=== PATIENT | female | born 1990 ===

== ENCOUNTER 2017-03-11 09:03 | Emergency (ER) | payer BC ==
[2017-03-11 09:17] VITALS: BP 124/74; PULSE 99; RESP 16; TEMP 99.2; O2SAT 99
[2017-03-11] MEDS ORDERED: Alum-Mag Hydrox-Simethicone Susp (30 mL) PO STA (09:33)
[2017-03-11] MEDS ORDERED: Sodium Chloride 0.9% 1,000 ML IV STA (09:33)
--- NOTE | 2017-03-11 09:37 | ED PDOC ---
Arrival/HPI - General Chief Complaint: Abdominal Pain Time Seen by Provider: 03/11/17 09:19 Historian: Patient - History of Present Illness Narrative History of Present Illness (Text): 03/11/17 09:34 26 y/o female, pmh including appendicitis, nkda, c/o abdominal pain x 1 week. Aching and cramping pain, on and off, admits poor eating habits and doesn't eat on time, occasional feels nausea with no vomiting, she has no diarrhea ( disagreed with the triage) which she usually has bowel movement 2-3 episodes per day, last bowel movement was this morning. Pt. has no weight loss, no night sweat, no dizziness, no chest pain or shortness of breath, no palpitation , no rash, no other medical or psychological complaints. Past Medical History - Provider Review Nursing Documentation Reviewed: Yes - Psychiatric Hx Psychophysiologic Disorder: No Hx Substance Use: No - Surgical History Hx Appendectomy: Yes Family/Social History - Physician Review Nursing Documentation Reviewed: Yes Family/Social History: Unknown Family HX Smoking Status: Never Smoked Hx Alcohol Use: No Hx Substance Use: No Allergies/Home Meds Allergies/Adverse Reactions: Allergies No Known Allergies Allergy (Verified 03/11/17 09:50) Review of Systems - Review of Systems Constitutional: absent: Fatigue, Fevers Eyes: absent: Vision Changes ENT: absent: Hearing Changes Respiratory: absent: SOB, Cough, Sputum Cardiovascular: absent: Chest Pain Gastrointestinal: Abdominal Pain, Nausea. absent: Diarrhea, Vomiting Neurological: absent: Headache, Dizziness, Focal Weakness, Gait Changes, Speech Changes, Facial Droop, Disequilibrium, Seizure Psychiatric: absent: Anxiety, Depression, Suicidal Ideation Physical Exam Vital Signs Reviewed: Yes Vital Signs Temp Pulse Resp BP Pulse Ox 03/11/17 09:12 99.2 F 99 H 16 124/74 99 Temperature: Afebrile Blood Pressure: Normal Pulse: Regular Respiratory Rate: Normal Appearance: Positive for: Well-Appearing, Non-Toxic, Comfortable Pain Distress: Moderate Mental Status: Positive for: Alert and Oriented X 3 - Systems Exam Head: Present: Atraumatic, Normocephalic Pupils: Present: PERRL Extroacular Muscles: Present: EOMI Conjunctiva: Present: Normal Mouth: Present: Moist Mucous Membranes, Normal Lips, Normal Tounge, Other (no dental erosion). No: Drooling, Trismus Neck: Present: Normal Range of Motion Respiratory/Chest: Present: Clear to Auscultation, Good Air Exchange. No: Respiratory Distress, Accessory Muscle Use Cardiovascular: Present: Regular Rate and Rhythm, Normal S1, S2. No: Murmurs Abdomen: Present: Tenderness (+epigastric tenderness), Normal Bowel Sounds. No : Distention, Peritoneal Signs, Rebound, Guarding Back: Present: Normal Inspection. No: CVA Tenderness Upper Extremity: Present: Normal Inspection. No: Cyanosis, Edema Lower Extremity: Present: Normal Inspection. No: Edema Neurological: Present: GCS=15, Speech Normal, Motor Func Grossly Intact, Gait Normal, Memory Normal Skin: Present: Warm, Dry, Normal Color. No: Rashes Psychiatric: Present: Alert, Oriented x 3, Normal Insight, Normal Concentration Medical Decision Making ED Course and Treatment: 03/11/17 09:38 Differential: pancreatitis vs. gastritis vs. cholecystitis vs. UTI -labs/ua -gallbladder sonogram -GI cocktail -IVF -Observe and reassess 03/11/17 10:41 -Labs are non-significant -UA show +UTI -Sonogram show no acute cholecystitis -Pt. fees better. -Discharge home with pepcid, zofran, avoid acidic/sour/spicy/fried/grilled food , avoid carbonated drinks, eat small and frequent meals, follow up with your own pmd and GI for outpatient follow up including endoscopy for further evaluation, return to the ER for any new or worsening signs or symptoms. - Lab Interpretations Lab Results: 03/11/17 09:40 03/11/17 09:40 Lab Results 03/11/17 09:40: Urine Color Yellow, Urine Appearance Sl cloudy, Urine pH 6.0, Ur Specific [place] 1.025, Urine Protein Trace H, Urine Glucose (UA) Negative, Urine Ketones Negative, Urine Blood Negative, Urine Nitrate Negative, Urine Bilirubin Negative, Urine Urobilinogen 0.2, Ur Leukocyte Esterase Small H, Urine RBC Negative, Urine WBC 2 - 5, Ur Epithelial Cells Many, Urine Bacteria Mod, Hyaline Casts 0 - 2 03/11/17 09:40: Sodium 137, Potassium 4.2, Chloride 103, Carbon Dioxide 27, Anion Gap 11, BUN 15, Creatinine 0.7, Est GFR ( Amer) > 60, Est GFR (Non- Af Amer) > 60, Random Glucose 90, Calcium 9.1, Total Bilirubin 0.3, AST 30, ALT 28, Alkaline Phosphatase 52, Total Protein 7.8, Albumin 4.0, Globulin 3.7, Albumin/Globulin Ratio 1.1, Lipase 57 03/11/17 09:40: WBC 6.8, RBC 4.21, Hgb 12.1, Hct 34.5 L, MCV 81.9, MCH 28.7, MCHC 35.1, RDW 12.5, Plt Count 269, MPV 9.3, Gran % 63.2, Lymph % (Auto) 29.3, [place] % (Auto) 6.0, Eos % (Auto) 1.2 L, Baso % (Auto) 0.3, Gran # 4.32, Lymph # 2.0, [place] # 0.4, Eos # 0.1, Baso # 0.02 I have reviewed the lab results: Yes Interpretation: Abnormal lab values (+UTI) - RAD Interpretation Radiology Orders: 03/11/17 09:33 GALL BLADDER [US] Stat - Medication Orders Current Medication Orders: Dicyclomine HCl (Bentyl) 20 mg PO QID CLAUDE Last Admin: 03/11/17 10:01 Dose: 20 mg Discontinued Medications Al Hydrox/Mg Hydrox/Simethicone (Maalox Plus 30 Ml) 30 ml PO STAT STA Stop: 03/11/17 09:34 Last Admin: 03/11/17 10:00 Dose: 30 ml Sodium Chloride (Sodium Chloride 0.9%) 1,000 mls @ 999 mls/hr IV .Q1H1M STA Stop: 03/11/17 10:33 Last Admin: 03/11/17 10:00 Dose: 999 mls/hr Lidocaine HCl (Lidocaine 2% Viscous) 15 ml PO STAT STA Stop: 03/11/17 09:34 Last Admin: 03/11/17 10:00 Dose: 15 ml - PA / NET ARCHITECT / Resident Statement /DO has reviewed & agrees with the documentation as recorded. Disposition/Present on Arrival - Present on Arrival Any Indicators Present on Arrival: No History of DVT/PE: No History of Uncontrolled Diabetes: No Urinary Catheter: No History of Decub. Ulcer: No History Surgical Site Infection Following: None - Disposition Have Diagnosis and Disposition been Completed?: Yes Diagnosis: Gastritis Disposition: HOME/ ROUTINE Disposition Time: 10:41 Patient Plan: Discharge Patient Problems: Current Active Problems Problem Status Onset Gastritis Acute Condition: IMPROVED Additional Instructions: Discharge home with pepcid, zofran, avoid acidic/sour/spicy/fried/grilled food, avoid carbonated drinks, eat small and frequent meals, follow up with your own pmd and GI for outpatient follow up including endoscopy for further evaluation, return to the ER for any new or worsening signs or symptoms. Prescriptions: Famotidine [Pepcid] 20 mg PO BID #28 tab Ondansetron [Zofran] 4 mg PO BID PRN #8 tab PRN Reason: Nausea/Vomiting Referrals: PCP,[facility] [Primary Care Provider] - Follow up with primary Norbert Guerrero MD [Staff Provider] - [place] up with primary [facility] [place] - Follow up with primary Forms: WORK NOTE
[2017-03-11 09:51] LABS: ADD MANUAL DIFF? NO
[2017-03-11 09:59] LABS: URINE BILIRUBIN NEGATIVE (NEGATIVE); URINE BLOOD NEGATIVE (NEGATIVE); URINE GLUCOSE (UA) NEGATIVE (NEGATIVE); URINE KETONE NEGATIVE (NEGATIVE); URINE LEUKOCYTE ESTERASE SMALL Leu/uL (NEGATIVE); URINE PROTEIN TRACE mg/dL (<30 mg/dL); URINE UROBILINOGEN 0.2 E.U./dL (<1 E.U./dL)
[2017-03-11 10:01] LABS: URINE APPEARANCE SL CLOUDY (CLEAR); URINE COLOR YELLOW (YELLOW)
[2017-03-11 10:05] LABS: ALB/GLOB RATIO 1.1 (1.1-1.8); ALKALINE PHOSPHATASE 52 U/L (38-133); ALT/SGPT 28 U/L (7-56); AST/SGOT 30 U/L (15-39); BILIRUBIN,TOTAL 0.3 mg/dL (0.2-1.3); BLOOD UREA NITROGEN 15 mg/dL (7-21); CALCIUM 9.1 mg/dL (8.4-10.5); CARBON DIOXIDE 27 mmol/L (21-33); CHLORIDE 103 mmol/L (98-107); GFR AFRICAN-AMERICAN > 60; GLUCOSE,RANDOM 90 mg/dL (70-110); LIPASE 57 U/L (23-300); POTASSIUM 4.2 mmol/L (3.6-5.0); SODIUM 137 mmol/L (132-148); TOTAL PROTEIN 7.8 g/dL (5.8-8.3)
[2017-03-11 10:13] LABS: URINE BACTERIA MOD (NEG); URINE EPITHELIAL CELLS MANY /hpf (0-5)
[2017-03-11 10:15] LABS: URINE RBC NEGATIVE /hpf (0-2)
[2017-03-11 10:25] LABS: BASO # 0.02 K/mm3 (0.0-2.0); BASO % 0.3 % (0.0-3.0); EOS # 0.1 (0.0-0.7); EOS % 1.2 % (1.5-5.0); GRAN # 4.32 (1.4-6.5); GRAN % 63.2 % (50.0-68.0); HEMATOCRIT 34.5 % (36.0-48.0); LYMPH % 29.3 % (22.0-35.0); MEAN CELL VOLUME 81.9 fL (80.0-105.0); MEAN CORPUSCULAR HEMOGLOBIN 28.7 pg (25.0-35.0); MEAN CORPUSCULAR HGB CONC 35.1 g/dl (31.0-37.0); MEAN PLATELET VOLUME 9.3 fl (7.0-11.0); MONO # 0.4 (0.1-0.6); PLATELET COUNT 269 10^3/uL (120.0-450.0); RED CELL DISTRIBUTION WIDTH 12.5 % (11.5-14.5); WHITE BLOOD COUNT 6.8 10^3/ul (4.5-11.0)
--- NOTE | 2017-03-11 10:57 | US ---
HISTORY: Abdominal pain, nausea and vomiting 1 week duration COMPARISON: None. TECHNIQUE: Sonographic evaluation of the right upper quadrant of the abdomen. FINDINGS: LIVER: Measures 16.7 cm in length. Patent portal vein. Portal venous flow: Hepatopetal. Unremarkeable echogenicity of the liver parenchyma. No mass. No intrahepatic bile duct dilatation. GALLBLADDER: Unremarkable. No gallstones. COMMON BILE DUCT: Measures 4.8 mm. No stones. No dilatation. PANCREAS: Unremarkable as visualized. No mass. No ductal dilatation. RIGHT KIDNEY: Measures 4.6 x 10.3 cm in length. Normal echogenicity. No calculus, mass, or hydronephrosis. AORTA: Obscured by overlying bowel gas. Non diagnostic assessment of the aorta IVC: Obscured by overlying bowel gas. Non diagnostic assessment of IVC OTHER FINDINGS: None . IMPRESSION: No acute findings related to/accounting for the clinical presentation. Limitations of the current examination: Nonvisualization IVC and abdominal aorta.
== END 2017-03-11 11:00 | disposition home or self-care (01) ==
LOC: ED 09:03
DX: K29.70 Gastritis, unspecified, without bleeding (principal)
CPT/HCPCS: 76705; 80053; 81001; 83690; 85025; 87086; 96360; 99283; J7040